=== PATIENT | male | born 1975 | race Caucasian/White ===

== ENCOUNTER 2017-09-03 20:15 | Emergency (ER) | payer BC ==
[2017-09-03] MEDS ORDERED: Erythromycin Base 0.5% Ophth Oint 1 GM Tube EYELF STA (21:13)
--- NOTE | 2017-09-03 21:23 | EDM.PDOC ---
ED HPI GENERAL MEDICAL PROBLEM - General Chief Complaint: ENT Problem Stated Complaint: METAL LEFT EYE Time Seen by Provider: 09/03/17 20:49 Source of Information: Reports: Patient History Limitations: Reports: No Limitations - History of Present Illness INITIAL COMMENTS - FREE TEXT/NARRATIVE: The patient states that he was grinding metal at home around 19:15 tonight. He states that he was wearing safety glasses, but he felt a foreign body go into his left eye anyway. He flushed the eye with water, and the foreign body sensation resolved, however, he still has a gritty sensation to the eye. He denies photophobia or blurring of vision. The patient does not wear contacts. He states that he has had foreign bodies to his eyes in the past. The patient's PCP is Dr. Hagan at [facility]. Left Eye Pain Score (Numeric/FACES): 5 - Related Data Allergies Allergy/AdvReac Type Severity Reaction Status Date / Time Penicillins Allergy Hives Verified 09/03/17 20:20 Home Meds: Home Meds Erythromycin Base [Erythromycin 0.5% Ophth Oint] 0.5 inch EYELF QID #1 tube [Rx] Ketorolac [Acular 0.5% Ophth Soln] 1 drop EYELF Q6H PRN #1 bottle 09/03/17 [Rx] Past Medical History Cardiovascular History: Reports: Hypertension - Past Surgical History HEENT Surgical History: Reports: Oral Surgery ([place] teeth extraction) Social & Family History - Tobacco Use Smoking Status *Q: Never Smoker Second Hand Smoke Exposure: No - Alcohol Use Alcohol Use History: No - Recreational Drug Use Recreational Drug Use: No - Living Situation & Occupation Living situation: Reports: Single, Alone 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 ED EXAM GENERAL W FULL EYE - Physical Exam Exam: See Below Exam Limited By: No Limitations General Appearance: Alert, WD/WN, No Apparent Distress Eyelids: Bilateral: Normal Appearance Conjunctiva & Sclera: Right: Normal Appearance, Left: Injected (mild) Cornea Exam: Right: Normal Appearance, Left: Foreign Body (punctate FB at 5:00 position) Extraocular Movements: Bilateral: Intact Pupils: Normal Accommodation Pupillary Size: Bilateral: 5 mm Pupillary Reaction: Bilateral: Brisk Anterior Chamber: Bilateral: Normal Appearance ED EYE w/ Add Procedure - Eye Procedure Alcaine Drops Administered: Yes Eye FB Removal: Removal w/ Needle (under slit lamp visualization) Antibiotic Oinment/Drps Admin: Left Eye (erythromycin ointment) Course - Vital Signs Last Recorded V/S: Last Vital Signs Temp 37.1 C 09/03/17 20:20 Pulse 78 09/03/17 20:20 Resp 16 09/03/17 20:20 BP 141/95 H 09/03/17 20:20 Pulse Ox 97 09/03/17 20:20 - Orders/Labs/Meds Meds: Medications Discontinued Medications Generic Name Dose Route Start Last Admin Trade Name Freq PRN Reason Stop Dose Admin Erythromycin 1 gm 09/03/17 21:13 09/03/17 21:37 Erythromycin 0.5% Ophth Oint EYELF 09/03/17 21:14 1 dose ONETIME STA Administration - Re-Assessments/Exams Free Text/Narrative Re-Assessment/Exam: 09/03/17 21:18 A metallic foreign body, located at approximately the 5:00 position, was removed with a needle under slit lamp visualization. As per current guidelines, the patient will be started on erythromycin ophthalmic ointment here in the ED, and I will prescribe enough for 3-5 days, in addition to Acular ophthalmic eyedrops. The patient has a rust ring, and if this persists past a few days, the patient will need to follow-up with an eye doctor. Departure - Departure Time of Disposition: 21:19 Disposition: Home, Self-Care 01 Condition: Good Clinical Impression: Foreign body in cornea, left eye, initial encounter - Discharge Information Prescriptions: Erythromycin Base [Erythromycin 0.5% Ophth Oint] 0.5 inch EYELF QID #1 tube Ketorolac [Acular 0.5% Ophth Soln] 1 drop EYELF Q6H PRN #1 bottle PRN Reason: Pain Instructions: Eye Foreign Body, [id number] Referrals: PCP,None [Primary Care Provider] - Forms: ED Department Discharge Additional Instructions: You were seen in the emergency room for a metal foreign body in your left eye. On examination, a piece of metal was located at the 5:00 position. This was removed under slit lamp guidance. You have been started on the antibiotic erythromycin ophthalmic ointment. A prescription for this has been sent to the [facility], located in the [facility] grocery store. Place half an inch ribbon of the ointment inside the bottom lid of your left eye 4 times a day for 3-5 days. A prescription for the eye pain reliever Acular was also sent. Instill 1 drop into your left eye 4 times a day, as needed for eye pain. The piece of metal left a rust ring in your eye. These usually reabsorb, but if still present after 3-5 days, please follow-up with an eye doctor for further management. If any other problems, please do not hesitate to return to the ER.
== END 2017-09-03 21:38 | disposition home or self-care (01) ==
LOC: JD.ED 20:15
DX: T15.02XA Foreign body in cornea, left eye, initial encounter (principal); I10 Essential (primary) hypertension; Z88.0 Allergy status to penicillin
CPT/HCPCS: 65222; 99283; A9270